=== PATIENT | female | born 2000 ===

== ENCOUNTER 2023-02-18 19:05 | Outpatient (REF) | payer OTHER, SELFPAY ==
[2023-02-23 15:08] LABS: Age Gdln ACOG Testing Note (.); IGP, rfx Aptima HPV ASCU Note (.)
== END 2023-02-18 19:06 | disposition home or self-care (01) ==
LOC: LAB 19:05
PROVIDERS: Visit Provider Obstetrics & Gynecology
DX: Z01.419 Encounter for gynecological examination (general) (routine) without abnormal findings (principal)
CPT/HCPCS: G0145

== ENCOUNTER 2024-03-16 19:12 | Outpatient (REF) | payer OTHER, SELFPAY ==
--- OUTSIDE RECORDS SUMMARY | 2024-03-16 19:21 | XMS_ITS | CCD ---
Author Organization [facility] Care Team Providers Care Contracting Support Specialist Name Role Phone Edgar Kelsey Unavailable Unavailable Edgar Kelsey Unavailable Unavailable UNKNOWN, PCP Unavailable Unavailable DiMarinoMarianela Unavailable Unavailable DiMarino Marianela CARTRE Unavailable Unavailable Christian Coelho Unavailable Unavailable Low PhD, Edgar GARRIDO Unavailable Unavailable Karen Downey Unavailable Unavailable Daxa Mcdonald Primary Care Physician Unavailab Page Crews Unavailable MD Christian Coelho Primary Care Provider DO Spenser Calabrese Attending Provider Torres Dennis Attending Unavailable Geno Eugene Attending Unavailable Taniya Krueger Unavailable MD Christian Coelho Primary Care Provider DO Spenser Calabrese Attending Provider FLORENTINO MCNEILL Attending Unavailable MD Christian Coelho Primary Care Provider MD Maribell James Attending Provider Bharati DO Spenser TRACY Attending Provider JERRY Barnes Attending Provider Christian Coelho Primary Care Unavailable Spenser Rodriguez Admitting Unavailable Spenser Rodriguez Attending Unavailable Page Barnes Admitting Unavailable Page Barnes Attending Unavailable Christian Coelho Primary Care Unavailable Maribell James Admitting Unavailable Maribell James Attending Unavailable Allergies Allergy Classification Reported Allergen(s) Allergy Type Date of Onset Reaction(s) Facility (1 source) Unable to obtain; Translations: [Unable to obtain] Propensity to adverse reactions (disorder) [facility] Medications Current Medications Medication Drug Class(es) Dates Sig (Normalized) Sig (Original) amoxicillin 500 mg oral capsule (2 sources) Penicillin-class Antibacterial Start: 02-14-2022 take 1 capsule by mouth every twelve hours Amoxicillin 500 MG 1 capsule Orally Twice a day for 10 days Feb, Active Start: 08-12-2021 End: 08-22-2021 take 1 tablet by mouth twice daily amoxicillin 875 mg Tab 875 mg = 1 tab(s), Oral, BID, X 10 day(s), # 20 tab(s), Refills(s) 0, Pharmacy: [facility], 171, cm, 08/12/21 12:26:00 EDT, Height/Length Dosing, 62.8, kg, 08/12/21 12:26:00 EDT, Weight Dosing Start Date: 08/12/21 Stop Date: 08/22/21 Status: Ordered Estarylla 0.25 mg-35 mcg oral tablet (1 source) Start: 08-12-2021 Estarylla 0.25 mg-35 mcg oral tablet Refill(s) 0 Start Date: 08/12/21 Status: Ordered Norethindrone-E.Estr adiol-Iron (3 sources) Estrogen Start: 10-19-2023 take 1 tablet by mouth once daily Norethindrone-E.E stradiol-Iron (Lo Loestrin Fe) 1 mg-10 mcg (24)/10 mcg (2) tablet Active TAB PO Daily October 19, 2023 12:00am {21 (ethinyl estradiol 0.035 MG / norgestimate 0.25 MG Oral Tablet) / 7 (inert ingredients 1 MG Oral Tablet) } Pack [Estarylla Day] (2 sources) Progestin, Estrogen take 1 tablet by mouth every twenty-four hours Estarylla 0.25-35 MG-MCG 1 tablet Orally Once a day for 28 days Active take 1 tablet by joshua th every twenty-four hours Estarylla 0.25-35 MG-MCG 1 tablet Orally Once a day Active nitrofurantoin, macrocrystals 25 mg / nitrofurantoin, monohydrate 75 mg oral capsule (2 sources) Nitrofuran Antibacterial Start: 01-19-2024 take 1 capsule by mouth every twelve hours at mealtime Nitrofurantoin Monohyd/M-Cryst (Macrobid) 100 mg capsule Active 100 MG PO Q12H 14 7 January 19, 2024 12:00am must administer with a meal/food phenazopyridine hydrochloride 200 mg oral tablet (2 sources) Start: 01-19-2024 take 1 tablet by mouth three times daily Phenazopyridine (Pyridium) 200 mg tablet Active 200 MG PO Three times daily 6 January 19, 2024 12:00am Completed/Discontinued Medications Medication Drug Class(es) Dates Sig (Normalized) Sig (Original) [id number] 200 actuat albuterol 0.09 mg/actuat metered dose inhaler (1 source) beta2-Adrenergic Agonist Start: 10-15-2015 take 2-4 puff(s) by inhalation every four to six hours as needed for cough ProAir HFA 108 (90 Base) MCG/ACT Inhalation Aerosol Solution Inhale 2-4 puffs every 4-6 hours as needed for cough, wheezing or shortness of breath and 5-20 minutes prior to exercise Quantity: 3 Refills: 2 Marianela Reyes DO Start : 15-Oct-2015 Active 8.5 GM Inhaler 60 actuat budesonide 0.16 mg/actuat / formoterol fumarate 0.0045 mg/actuat metered dose inhaler (1 source) Corticosteroid, beta2-Adrenergic Agonist Start: 08-01-2016 take 2 puff(s) by mouth twice daily Symbicort 160-4.5 MCG/ACT Inhalation Aerosol INHALE 2 PUFFS TWICE DAILY. RINSE MOUTH AFTER USE. Quantity: 1 Refills: 6 Marianela Reyes DO Start : 01-Aug-2016 Active 10.2 GM Inhaler clindamycin 0.01 mg/mg topical gel (1 source) Lincosamide Antibacterial Start: 04-09-2016 Clindamycin Phosphate 1 % External Gel Quantity: 30 Refills: 0 Start : 09-Apr-2016 Active minocycline 100 mg oral capsule (1 source) Tetracycline-class Drug Start: 04-09-2016 Minocycline HCl - 100 MG Oral Capsule Quantity: 30 Refills: 0 Start : 09-Apr-2016 Active sulfacetamide sodium 100 mg/ml topical lotion (1 source) Sulfonamide Antibacterial Start: 04-09-2016 Sulfacetamide Sodium (Acne) 10 % External Lotion Quantity: 60 Refills: 0 Start : 09-Apr-2016 Active Problems Active Problems Problem Classification Problem Date Documented Date Episodic/Chronic Anxiety disorders (1 source) Performance anxiety; Translations: [Other anxiety states] Chronic Asthma (2 sources) Exercise-induced asthma; Translations: [Exercise induced bronchospasm] Chronic Contraceptive and procreative management (6 sources) Patient encounter status; Translations: [Encounter for other general counseling and advice on contraception] Episodic Genitourinary symptoms and ill-defined conditions (1 source) Dysuria; Translations: [Dysuria] Onset: 01-19-2024 Episodic Inflammation; infection of eye (except that caused by tuberculosis or sexually transmitteddisease) (1 source) Viral conjunctivitis; Translations: [Viral conjunctivitis, unspecified] Onset: 08-12-2021 Episodic Miscellaneous mental health disorders (1 source) Psychosomatic factor in physical condition; Translations: [Psychic factors associated with diseases classified elsewhere] Chronic Other and delivery including normal (1 source) Delivery normal; Translations: [Normal delivery] Episodic Other upper respiratory disease (1 source) Allergic rhinitis; Translations: [Allergic rhinitis, cause unspecified] Chronic Other upper respiratory disease (2 sources) Vocal cord dysfunction; Translations: [Other diseases of vocal cords] Episodic Other upper respiratory infections (3 sources) Acute maxillary sinusitis, unspecified; Translations: [Acute pharyngitis, unspecified] Onset: 08-12-2021 Episodic Unclassified (1 source) 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) Onset: 11-13-2016 Unclassified (1 source) 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-10) Onset: 11-13-2016 Unclassified (1 source) Other diseases of vocal cords / J38.3(ICD-10) Onset: 11-13-2016 Urinary tract infections (2 sources) Acute cystitis with hematuria; Translations: [Acute cystitis] 01-19-2024 Episodic Past or Other Problems Problem Classification Problem Date Documented Date Episodic/Chronic Administrative/social admission (1 source) Encounter for nonprocreative genetic counseling; Translations: [Encounter for nonprocreative genetic counseling] Onset: 08-19-2023 Episodic NEGATED: Highlighted row has not occurred!Residual codes; unclassified (1 source) Disease Episodic Results Test Name Value Interpretation Reference Range Facility Urine Cultureon 01-19-2024 Bacteria identified Cx Nom (U) ORGANISM: Escherichia coli (MDRO) (O:ESCCOLMDRO) [place] Count >100,000 Aerobic SAVANNAH Charge (NMIC56) ---- SUSCEPTIBILITY --- ORGANISM: O:ESCCOLMDRO ANTIBIOTIC INTERPRETATION SAVANNAH Amikacin S <16 Amoxacillin/K Clavulanate S <8 Ampicillin R >16 Ampicillin/Sulbactam I 1616/8 Aztreonam S <4 Cefazolin S 4 Cefepime S <2 Ceftazidime S <1 Ceftazidime/Avibactam S <4 Ceftolozane/Tazobacta m S <2 Ceftriaxone S <1 Cefuroxime S <4 Ciprofloxacin S <0.25 Ertapenem S <0.5 Gentamicin R >8 Levofloxacin S <0.5 Meropenem S <1 Meropenem/Vaborbactam S <2 Nitrofurantoin S <32 Piperacillin/Tazobact am S <8 Tetracycline R >8 Tigecycline S <2 Tobramycin S 4 Trimethoprim/Sulfamet hoxazole R >2 S = SUSCEPTIBLE I = INTERMEDIATE R = RESISTANT BLANK = DATA NOT AVAILABLE, OR DRUG NOT ADVISABLE OR TESTED R* = RESISTANCE DUE TO EXTENDED SPECTRUM BETA-LACTAMASES ESBL = EXTENDED SPECTRUM BETA-LACTAMASE TFG = THYMIDINE-DEPENDENT STRAIN CHIKIS = BETA-LACTAMASE POSITIVE IB = INDUCIBLE BETA-LACTAMASE. APPEARS IN PLACE OF 'S' WITH SPECIES KNOWN TO POSSESS INDUCIBLE BETA-LACTAMASES. POTENTIALLY THEY MAY BECOME RESISTANT TO ALL B-LACTAM DRUGS. PERFORMED BY: [place] [address] PATHOLOGIST [employer] M[employer] SETTER HARRIET GUADALUPE M.D. Normal [facility] Comment on above: Performed By: #### C UU #### [place] [address] [place] Automated basophil %Ordered By: Taniya Krueger on 09-24-2023 Basophils/100 WBC (Bld) 0.7 % Normal . [facility] Comment on above: Performed By: #### P ILLAR TSH, PILLAR CBC, PILLAR BMP, PILLAR LIPID #### [address] Automated basophil countOrde red By: Taniya Krueger on 09-24-2023 Basophils (Bld) [#/Vol] 0.0 10*3/uL Normal 0.0-0.2 [facility] Comment on above: Result Comment: PERF ORMED BY: [place] [address] PATHOLOGIST [employer] MACHINE SETTER HARRIET GUADALUPE M.D. Performed By: #### P ILLAR TSH, PILLAR CBC, PILLAR BMP, PILLAR LIPID #### [address] Automated blood monocyte cou ntOrdered By: Taniya Krueger on 09-24-2023 Monocytes (Bld) [#/Vol] 0.2 10*3/uL Normal 0.0-0.8 [facility] Comment on above: Performed By: #### P ILLAR TSH, PILLAR CBC, PILLAR BMP, PILLAR LIPID #### [address] Automated eosinophil %Ordere d By: Taniya Krueger on 09-24-2023 Eosinophils/100 WBC (Bld) 1.9 % Normal . [facility] Comment on above: Performed By: #### P ILLAR TSH, PILLAR CBC, PILLAR BMP, PILLAR LIPID #### [address] Automated eosinophil countOr dered By: Taniya Krueger on 09-24-2023 Eosinophils (Bld) [#/Vol] 0.1 10*3/uL Normal 0.0-0.45 [facility] Comment on above: Performed By: #### P ILLAR TSH, PILLAR CBC, PILLAR BMP, PILLAR LIPID #### [address] Automated monocyte %Ordered By: Taniya Krueger on 09-24-2023 Monocytes/100 WBC (Bld) 6.8 % Normal . [facility] Comment on above: Performed By: #### P ILLAR TSH, PILLAR CBC, PILLAR BMP, PILLAR LIPID #### [facility] [address] [place] [address] [place] Automated neutrophil %Ordere d By: Taniya Krueger on 09-24-2023 Neutrophils/100 WBC (Bld) 38.7 % Normal . [facility] Comment on above: Performed By: #### P ILLAR TSH, PILLAR CBC, PILLAR BMP, PILLAR LIPID #### [address] Calcium [Mass/volume] in Ser um or PlasmaOrdered By: Taniya Krueger on 09-24-2023 Calcium [Mass/Vol] 9.9 mg/dL Normal 8.6-10.3 [facility] Comment on above: Performed By: #### P ILLAR TSH, PILLAR CBC, PILLAR BMP, PILLAR LIPID #### [address] Carbon dioxide, total [Moles /volume] in Serum or PlasmaOrdered By: Taniya Krueger on 09-24-2023 CO2 [Moles/Vol] 26.3 mmol/L Normal 21.0-31.0 [facility] Comment on above: Performed By: #### P ILLAR TSH, PILLAR CBC, PILLAR BMP, PILLAR LIPID #### [facility] [address] [place] [address] [place] Chloride [Moles/volume] in S susie or PlasmaOrdered By: Taniya Krueger on 09-24-2023 Chloride [Moles/Vol] 105 mmol/L Normal 98-107 [facility] Comment on above: Performed By: #### P ILLAR TSH, PILLAR CBC, PILLAR BMP, PILLAR LIPID #### [place] [address] [place] Cholesterol [Mass/volume] in Serum or PlasmaOrdered By: Taniya Krueger on 09-24-2023 Cholesterol [Mass/Vol] 191 mg/dL Normal 140-200 [facility] Comment on above: Chol less than 200 m g/dl low riskChol 201-239 mg/dl borderline riskChol 240 mg/dl and greater high risk Result Comment: Chol less than 200 mg/dl low risk Chol 201-239 mg/dl borderline risk Chol 240 mg/dl and greater high risk Performed By: #### P ILLAR TSH, PILLAR CBC, PILLAR BMP, PILLAR LIPID #### [facility] [address] Cholesterol in LDL Calc [Mas s/Vol]Ordered By: Taniya Krueger on 09-24-2023 Cholesterol in LDL [Mass/Vol] 115 mg/dL High 0-100 [facility] Comment on above: LDL ATP III CLASSIFI CATIONLDL less than 100 mg/dL OptimalLDL 100-129 mg/dL Near or above optimalLDL 130-159 mg/dL Borderline highLDL 160-189 mg/dL HighLDL greater than 189 mg/dL Very high Cholesterol in VLDL Calc [Ma ss/Vol]Ordered By: Taniya Krueger on 09-24-2023 Cholesterol in VLDL [Mass/Vol] 13 mg/dL [facility] Creatinine [Mass/volume] in Serum or PlasmaOrdered By: Taniya Krueger on 09-24-2023 Creatinine [Mass/Vol] 0.74 mg/dL Normal 0.60-1.20 [facility] Comment on above: Performed By: #### P ILLAR TSH, PILLAR CBC, PILLAR BMP, PILLAR LIPID #### [facility] [address] [place] [address] Employee Basic Metabolic Thomas nadia 09-24-2023 GFR/1.73 sq M.predicted MDRD (S/P/Bld) [Vol rate/Area] mL/min/{1.73_m2} Normal [facility] Comment on above: Performed By: #### P ILLAR TSH, PILLAR CBC, PILLAR BMP, PILLAR LIPID #### [facility] [address] Employee Complete Blood Coun ton 09-24-2023 Mean Corpuscular HGB Conc 35.0 g/dL Normal 32.0-35.0 [facility] Comment on above: Performed By: #### P ILLAR TSH, PILLAR CBC, PILLAR BMP, PILLAR LIPID #### [facility] [address] NRBC% 0.2 /100{WBC} Normal 0-0.5 [facility] Comment on above: Performed By: #### P ILLAR TSH, PILLAR CBC, PILLAR BMP, PILLAR LIPID #### [facility] [address] Employee Lipid Profileon LDL Cholesterol,Calculated 115 mg/dL High 0-100 [facility] Comment on above: Result Comment: LDL ATP III CLASSIFICATION LDL less than 100 mg/dL Optimal LDL 100-129 mg/dL Near or above optimal LDL 130-159 mg/dL Borderline high LDL 160-189 mg/dL High LDL greater than 189 mg/dL Very high Performed By: #### P ILLAR TSH, PILLAR CBC, PILLAR BMP, PILLAR LIPID #### [address] Triglyceride w/Reflex 66 mg/dL Normal 0-149 [facility] Comment on above: Result Comment: TRIG ATP III CLASSIFICATION TRIG less than 150 mg/dL Normal TRIG 150-199 mg/dL Borderline high TRIG 200-500 mg/dL High TRIG greater than 500 mg/dL Very high Standard traceable to the Center for Disease Conrtrol and Prevention (CDC) test method. Performed By: #### P ILLAR TSH, PILLAR CBC, PILLAR BMP, PILLAR LIPID #### [address] VLDL CHOLESTEROL 13 mg/dL Normal [facility] Comment on above: Performed By: #### P ILLAR TSH, PILLAR CBC, PILLAR BMP, PILLAR LIPID #### [address] Employee Thyroid Stim Hormon omer 09-24-2023 Employee Thyroid Stim Hormone 2.17 u[iU]/mL Normal 0.45-5.33 [facility] Comment on above: Result Comment: PERF ORMED BY: [place] [address] PATHOLOGIST [employer] MACHINE SETTER JIANLAN SUN M.D. Performed By: #### P ILLAR TSH, PILLAR CBC, PILLAR BMP, PILLAR LIPID #### [facility] [address] [place] [address] Erythrocyte distribution wid th [Ratio] by Automated countOrdered By: Taniya Krueger on 09-24-2023 Erythrocyte distribution width (RBC) [Ratio] 12.1 % Normal 11.9-15.3 [facility] Comment on above: Performed By: #### P ILLAR TSH, PILLAR CBC, PILLAR BMP, PILLAR LIPID #### [address] Erythrocytes [#/volume] in B lood by Automated countOrdered By: Taniya Krueger on 09-24-2023 RBC (Bld) [#/Vol] 4.23 10*6/uL Normal 3.60-5.00 [facility] Comment on above: Performed By: #### P ILLAR TSH, PILLAR CBC, PILLAR BMP, PILLAR LIPID #### [address] Glucose [Mass/volume] in Ser um or PlasmaOrdered By: Taniya Krueger on 09-24-2023 Glucose [Mass/Vol] 94 mg/dL Normal 70-100 [facility] Comment on above: Performed By: #### P ILLAR TSH, PILLAR CBC, PILLAR BMP, PILLAR LIPID #### [address] Hematocrit [Volume Fraction] of Blood by Automated countOrdered By: Taniya Krueger on 09-24-2023 Hematocrit (Bld) [Volume fraction] 40.5 % Normal 34.0-46.4 [facility] Comment on above: Performed By: #### P ILLAR TSH, PILLAR CBC, PILLAR BMP, PILLAR LIPID #### [facility] [address] [place] [address] Hemoglobin [Mass/volume] in BloodOrdered By: Taniya Krueger on 09-24-2023 Hemoglobin (Bld) [Mass/Vol] 14.2 g/dL Normal 11.8-15.4 [facility] Comment on above: Performed By: #### P ILLAR TSH, PILLAR CBC, PILLAR BMP, PILLAR LIPID #### [facility] [address] Leukocytes [#/volume] correc henry for nucleated erythrocytes in Blood by Automated counOrdered By: Taniya Krueger on 09-24-2023 WBC corrected for nucl RBC Auto (Bld) [#/Vol] 3.2 10*3/uL Low 3.8-11.6 [facility] Leukocytes [#/volume] in Blo od by Automated countOrdered By: Taniya Krueger on 09-24-2023 WBC (Bld) [#/Vol] 3.2 10*3/uL Low 3.8-11.6 [facility] Comment on above: Performed By: #### P ILLAR TSH, PILLAR CBC, PILLAR BMP, PILLAR LIPID #### [facility] [address] [place] [address] [place] Lymphocytes [#/volume] in Bl ood by Automated countOrdered By: Taniya Krueger on 09-24-2023 Lymphocytes (Bld) [#/Vol] 1.7 10*3/uL Normal 1.00-4.8 [facility] Comment on above: Performed By: #### P ILLAR TSH, PILLAR CBC, PILLAR BMP, PILLAR LIPID #### [facility] [address] [place] [address] [place] Lymphocytes/100 leukocytes i n Blood by Automated countOrdered By: Taniya Krueger on 09-24-2023 Lymphocytes/100 WBC (Bld) 51.9 % Normal . [facility] Comment on above: Performed By: #### P ILLAR TSH, PILLAR CBC, PILLAR BMP, PILLAR LIPID #### [facility] [address] [place] [address] [place] MCH [Entitic mass] by Automa henry countOrdered By: Taniya Krueger on 09-24-2023 MCH (RBC) [Entitic mass] 33.5 pg Normal 24.7-34.3 [facility] Comment on above: Performed By: #### P ILLAR TSH, PILLAR CBC, PILLAR BMP, PILLAR LIPID #### [facility] [address] MCHC Auto (RBC) [Mass/Vol]Or dered By: Taniya Krueger on 09-24-2023 MCHC (RBC) [Mass/Vol] 35.0 g/dL 32.0-35.0 [facility] MCV [Entitic volume] by Auto mated countOrdered By: Taniya Krueger on 09-24-2023 MCV (RBC) [Entitic vol] 95.9 fL Normal 80-100 [facility] Comment on above: Performed By: #### P ILLAR TSH, PILLAR CBC, PILLAR BMP, PILLAR LIPID #### [facility] [address] [place] [address] Neutrophils [#/volume] in Bl ood by Automated countOrdered By: Taniya Krueger on 09-24-2023 Neutrophils (Bld) [#/Vol] 1.2 10*3/uL Low 1.8-7.7 [facility] Comment on above: Performed By: #### P ILLAR TSH, PILLAR CBC, PILLAR BMP, PILLAR LIPID #### [facility] [address] [place] [address] No Panel InformationOrdered By: Taniya Krueger on 09-24-2023 Estimated GFR (CKD-EPI) > 60.0 mL/Min [facility] Creatinine Clearance (Chem N/A [facility] Nucleated erythrocytes [Pres ence] in Blood by Automated countOrdered By: Taniya Krueger on 09-24-2023 Nucleated RBC Auto Ql (Bld) 0.2 /100{WBC} 0-0.5 [facility] Platelet mean volume [Entiti c volume] in Blood by Automated countOrdered By: Taniya Krueger on 09-24-2023 Platelet mean volume (Bld) [Entitic vol] 7.5 fL Normal 6.3-10.7 [facility] Comment on above: Performed By: #### P ILLAR TSH, PILLAR CBC, PILLAR BMP, PILLAR LIPID #### [facility] [address] [place] [address] Platelets [#/volume] in Bloo d by Automated countOrdered By: Taniya Krueger on 09-24-2023 Platelets (Bld) [#/Vol] 251 10*3/uL Normal 150-450 [facility] Comment on above: Performed By: #### P ILLAR TSH, PILLAR CBC, PILLAR BMP, PILLAR LIPID #### [facility] [address] Potassium [Moles/volume] in Serum or PlasmaOrdered By: Taniya Krueger on 09-24-2023 Potassium [Moles/Vol] 4.5 mmol/L Normal 3.5-5.1 [facility] Comment on above: Performed By: #### P ILLAR TSH, PILLAR CBC, PILLAR BMP, PILLAR LIPID #### [facility] [address] [place] [address] Serum or plasma anion gap de terminationOrdered By: Taniya Krueger on 09-24-2023 Anion gap [Moles/Vol] 11.2 mmol/L Normal 6.0-15.0 [facility] Comment on above: Performed By: #### P ILLAR TSH, PILLAR CBC, PILLAR BMP, PILLAR LIPID #### [facility] [address] [place] [address] Serum or plasma high density lipoprotein (HDL) cholesterol measurementOrdered By: Taniya Krueger on 09-24-2023 Cholesterol in HDL [Mass/Vol] 63 mg/dL Normal 23-92 [facility] Comment on above: HDL CHOL ATP-III CLA SSIFICATION Cardiovascular RiskHDL > or equal to 60 mg/dL LOWHDL < 40 mg/dL HIGH Result Comment: HDL CHOL ATP-III CLASSIFICATION Cardiovascular Risk HDL > or equal to 60 mg/dL LOW HDL < 40 mg/dL HIGH Performed By: #### P ILLAR TSH, PILLAR CBC, PILLAR BMP, PILLAR LIPID #### [facility] [address] [place] [address] Serum or plasma total choles terol/high density lipoprotein (HDL) cholesterol mass ratOrdered By: Taniya Krueger on 09-24-2023 Cholesterol.total/Sindy sterol in HDL [Mass ratio] 3.0 {ratio} Normal <5.0 [facility] Comment on above: Performed By: #### P ILLAR TSH, PILLAR CBC, PILLAR BMP, PILLAR LIPID #### [facility] [address] Sodium [Moles/volume] in Ser um or PlasmaOrdered By: Taniya Krueger on 09-24-2023 Sodium [Moles/Vol] 138 mmol/L Normal 136-145 [facility] Comment on above: Performed By: #### P ILLAR TSH, PILLAR CBC, PILLAR BMP, PILLAR LIPID #### [facility] [address] Thyrotropin [Units/volume] i n Serum or PlasmaOrdered By: Taniya Krueger on 09-24-2023 TSH Qn 2.17 m[IU]/L 0.45-5.33 [facility] Triglyceride [Mass/volume] i n Serum or PlasmaOrdered By: Taniya Krueger on 09-24-2023 Triglyceride [Mass/Vol] 66 mg/dL 0-149 [facility] Comment on above: TRIG ATP III CLASSIF ICATIONTRIG less than 150 mg/dL NormalTRIG 150-199 mg/dL Borderline highTRIG 200-500 mg/dL High TRIG greater than 500 mg/dL Very highStandard traceable to the Center for Disease Conrtrol and Prevention (CDC) test method. Urea nitrogen [Mass/volume] in Serum or PlasmaOrdered By: Taniya Krueger on 09-24-2023 Urea nitrogen [Mass/Vol] 11 mg/dL Normal 7-25 [facility] Comment on above: Performed By: #### P ILLAR TSH, PILLAR CBC, PILLAR BMP, PILLAR LIPID #### [facility] [address] [place] [address] [place] In office Testingon 05-28-19 23 In office Testing [id number] 1.00CD:[address] [facility] Albumin [Mass/volume] in Ser um or PlasmaOrdered By: Spenser Calabrese on 05-27-2022 Albumin [Mass/Vol] 4.7 g/dL 3.2-5.5 [facility] Aspartate aminotransferase [ Enzymatic activity/volume] in Serum or PlasmaOrdered By: Spenser Calabrese on 05-27-2022 AST [Catalytic activity/Vol] 19 U/L 10-42 [facility] Cholesterol [Mass/volume] in Serum or PlasmaOrdered By: Spenser Calabrese on 05-27-2022 Cholesterol [Mass/Vol] 180 mg/dL 140-200 [facility] Comment on above: Chol less than 200 m g/dl low riskChol 201-239 mg/dl borderline riskChol 240 mg/dl and greater high risk Cholesterol in LDL Calc [Mas s/Vol]Ordered By: Spenser Calabrese on 05-27-2022 Cholesterol in LDL [Mass/Vol] 109 mg/dL 0-100 [facility] Comment on above: LDL ATP III CLASSIFI CATIONLDL less than 100 mg/dL OptimalLDL 100-129 mg/dL Near or above optimalLDL 130-159 mg/dL Borderline highLDL 160-189 mg/dL HighLDL greater than 189 mg/dL Very high Cholesterol in VLDL Calc [Ma ss/Vol]Ordered By: Spenser Calabrese on 05-27-2022 Cholesterol in VLDL [Mass/Vol] 10 mg/dL [facility] Creatinine and Glomerular fi ltration rate.predicted panel (S/P/Bld)Ordered By: Spenser Calabrese on 05-27-2022 Creatinine [Mass/Vol] 0.66 mg/dL 0.44-1.03 [facility] Estimated glomerular filtrat ion rate (GFR) non- AmericanOrdered By: Spenser Calabrese on 05-27-2022 GFR/1.73 sq M.predicted among non-blacks MDRD (S/P/Bld) [Vol rate/Area] > 60 mL/Min [facility] Globulin Calc (S) [Mass/Vol] Ordered By: Spenser Calabrese on 05-27-2022 Globulin (S) [Mass/Vol] 2.5 g/dL [facility] - Chemistry and C hemistry - challengeOrdered By: Spenser Calabrese on 05-27-2022 Glucose [Mass/Vol] 88 mg/dL 70-100 [facility] No Panel InformationOrdered By: Spenser Calabrese on 05-27-2022 Estimated GFR () > 60 mL/Min [facility] Comment on above: GFR estimated refere nce range: According to KDOQI guidelines, <60 ml/min/1.73m2 is sufficient to diagnose a patient with chronic kidney disease. Pharmacy Creatinine Clearance (Chem N/A [facility] Triglycerides Reflex 51 mg/dL 35-149 [facility] Comment on above: TRIG ATP III CLASSIF ICATIONTRIG less than 150 mg/dL NormalTRIG 150-199 mg/dL Borderline highTRIG 200-500 mg/dL High TRIG greater than 500 mg/dL Very highStandard traceable to the Center for Disease Conrtrol and Prevention (CDC) test method. Protein [Mass/volume] in Ser um or PlasmaOrdered By: Spenser Calabrese on 05-27-2022 Protein [Mass/Vol] 7.2 g/dL 6.1-7.9 [facility] Serum or plasma alanine ackerman otransferase measurement without P-5'-P (enzymatic activiOrdered By: Spenser Calabrese on 05-27-2022 ALT No additional P-5'-P [Catalytic activity/Vol] 17 U/L 10-60 [facility] Serum or plasma albumin/glob ulin mass ratioOrdered By: Spenser Calabrese on 05-27-2022 Albumin/Globulin [Mass ratio] 1.9 {ratio} [facility] Serum or plasma alkaline jeanie sphatase measurement (enzymatic activity/volume)Ordered By: Spenser Calabrese on 05-27-2022 ALP [Catalytic activity/Vol] 27 U/L 32-92 [facility] Serum or plasma anion gap de terminationOrdered By: Spenser Calabrese on 05-27-2022 Anion gap [Moles/Vol] 12.9 mmol/L 6.0-15.0 [facility] Serum or plasma calcium chapis urement (mass/volume)Ordered By: Spenser Calabrese on 05-27-2022 Calcium [Mass/Vol] 9.5 mg/dL 8.2-10.2 [facility] Serum or plasma chloride venancio surement (moles/volume)Ordered By: Spenser Calabrese on 05-27-2022 Chloride [Moles/Vol] 102 mmol/L 95-114 [facility] Serum or plasma high density lipoprotein (HDL) cholesterol measurementOrdered By: Spenser Calabrese on 05-27-2022 Cholesterol in HDL [Mass/Vol] 61 mg/dL 35-85 [facility] Comment on above: HDL CHOL ATP-III CLA SSIFICATION Cardiovascular RiskHDL > or equal to 60 mg/dL LOWHDL < 40 mg/dL HIGH Serum or plasma potassium me asurement (moles/volume)Ordered By: Spenser Calabrese on 05-27-2022 Potassium [Moles/Vol] 3.7 mmol/L 3.5-5.1 [facility] Serum or plasma sodium measu rement (moles/volume)Ordered By: Spenser Calabrese on 05-27-2022 Sodium [Moles/Vol] 134 mmol/L 136-146 [facility] Serum or plasma total biliru bin measurement (mass/volume)Ordered By: Spenser Calabrese on 05-27-2022 Bilirubin [Mass/Vol] 0.8 mg/dL 0.3-1.2 [facility] Serum or plasma total carbon dioxide measurement (moles/volume)Ordered By: Spenser Calabrese on 05-27-2022 CO2 [Moles/Vol] 22.8 mmol/L 22.0-30.0 [facility] Serum or plasma total choles terol/high density lipoprotein (HDL) cholesterol mass ratOrdered By: Spenser Calabrese on 05-27-2022 Cholesterol.total/Sindy sterol in HDL [Mass ratio] 3.0 {ratio} <5.0 [facility] Serum or plasma urea nitroge n measurement (mass/volume)Ordered By: Spenser Calabrese on 05-27-2022 Urea nitrogen [Mass/Vol] 10 mg/dL 9-23 [facility] Quick Strepon 02-14-2022 S. pyogenes Org specific cx Ql (Throat) Positive Nolio Other [facility] Other Ambulatory Visit Summaryon 0 08-12-2021 Ambulatory Visit Summary YOSEF SMITH :2000 Visit Date:08/12/2021 Ambulatory Visit Instructions Your Diagnosis Acute maxillary sinusitis, unspecified Viral conjunctivitis, both eyes Your Care Team Attending Physician - Jabier MENG, Geno Kendrick Primary Care Physician - Harry CORREA PhD, Daxa Baxter This Is Your Medications List amoxicillin (amoxicillin 875 mg Tab) Contact prescribing physician if questions or concerns ethinyl estradiol-norgestimat e (Estarylla 0.25 mg-35 mcg oral tablet) Discharge Vitals Temperature (Oral) 36.9 ?C Heart Rate (Peripheral) 100 Blood Pressure 118/70 Height 171 cm Height 171.0 cm Weight 62.8 kg Weight 62.8 kg BMI 21.48 What to do next You Need to Schedule the Following Appointments Follow Up with Harry CORREA PhD, Daxa Baxter, [facility] When: Where: [address] [place] [phone] Medications What How Much When Why Instructions New amoxicillin (amoxicillin 875 mg Tab) 1 Tablets By Mouth 2 times a day Acute maxillary sinusitis, unspecified Duration: [address] [facility] Unchanged ethinyl estradiol-norgestimat e (Estarylla 0.25 mg-35 mcg oral tablet) Contact prescribing physician if questions or concerns Pharmacy Information [facility]: [address] [place], [place] [id number] [phone] Allergies No Known Allergies Education Materials Sinusitis, Adult Sinusitis is inflammation of your sinuses. Sinuses are hollow spaces in the bones around your face. Your sinuses are located: ? Around your eyes. ? In the middle of your forehead. ? Behind your nose. ? In your cheekbones. Mucus normally drains out of your sinuses. When your nasal tissues become inflamed or swollen, mucus can become trapped or blocked. This allows bacteria, viruses, and fungi to grow, which leads to infection. Most infections of the sinuses are caused by a virus. Sinusitis can develop quickly. It can last for up to 4 weeks (acute) or for more than 12 weeks (chronic). Sinusitis often develops after a cold. What are the causes? This condition is caused by anything that creates swelling in the sinuses or stops mucus from draining. This includes: ? Allergies. ? Asthma. ? Infection from bacteria or viruses. ? Deformities or blockages in your nose or sinuses. ? Abnormal growths in the nose (nasal polyps). ? Pollutants, such as chemicals or irritants in the air. ? Infection from fungi (rare). What increases the risk? You are more likely to develop this condition if you: ? Have a weak body defense system (immune system). ? Do a lot of swimming or diving. ? Overuse nasal sprays. ? Smoke. What are the signs or symptoms? The main symptoms of this condition are pain and a feeling of pressure around the affected sinuses. Other symptoms include: ? Stuffy nose or congestion. ? Thick drainage from your nose. ? Swelling and warmth over the affected sinuses. ? Headache. ? Upper toothache. ? A cough that may get worse at night. ? Extra mucus that collects in the throat or the back of the nose (postnasal drip). ? Decreased sense of smell and taste. ? Fatigue. ? A fever. ? Sore throat. ? Bad breath. How is this diagnosed? This condition is diagnosed based on: ? Your symptoms. ? Your medical history. ? A physical exam. ? Tests to find out if your condition is acute or chronic. This may include: ? Checking your nose for nasal polyps. ? Viewing your sinuses using a device that has a light (endoscope). ? Testing for allergies or bacteria. ? Imaging tests, such as an MRI or CT scan. In rare cases, a bone biopsy may be done to rule out more serious types of fungal sinus disease. How is this treated? Treatment for sinusitis depends on the cause and whether your condition is chronic or acute. ? If caused by a virus, your symptoms should go away on their own within 10 days. You may be given medicines to relieve symptoms. They include: ? Medicines that shrink swollen nasal passages (topical intranasal decongestants). ? Medicines that treat allergies (antihistamines). ? A spray that eases inflammation of the nostrils (topical intranasal corticosteroids). ? Rinses that help get rid of thick mucus in your nose (nasal saline washes). ? If caused by bacteria, your health care provider may recommend waiting to see if your symptoms improve. Most bacterial infections will get better without antibiotic medicine. You may be given antibiotics if you have: ? A severe infection. ? A weak immune system. ? If caused by narrow nasal passages or nasal polyps, you may need to have surgery. Follow these instructions at home: Medicines ? Take, use, or apply [id number]-[id number] and prescription medicines only as told by your health care provider. These may include nasal sprays. ? (more content not included)... Normal [facility] Family Medicine Office/Clini c Noteon 08-12-2021 Family Medicine Office/Clinic Note Chief Complaint [employer] [place] eye/Sinus HPI Staff Yosef is a 21 year old female presenting for possible pink eye and sinus symptoms Symptoms started- LAst week Headache- yes Body aches- no Earache- no Runny/stuffy nose- runny Problem with Smell- no Problem with Taste- no Sore throat- no Cough- yes Scratchy tickly throat- no Chest symptoms- NO GAN- no Orthopnea- no Lung Hx asthma, bronchitis, chest colds- no Fever/chills- no GI symptoms- no COVID exposure- no Vaccinated: no Eye-- Onset: Yesterday Characteristics: Goopy Drainage: Slight Laterality: Bilateral History of Present Illness I have reviewed and verified the staff HPI to be accurate for this encounter. Patient presents in office with c/o URI symptoms x 1.5 week. Reports HAYNES, rhinorrhea, nasal congestion, cough. Also c/o pink eye symptoms including watery drainage, and redness to both eyes. Denies body aches, fatigue, sore throat, SOB, wheezing, fever, chills and GI symptoms. Denies drainage throughout day and itchy/burning of eyes. No known sick or COVID exposure. Patient not COVID vaccinated at this time. Has not tried anything OTC at this time. Review of Systems PHQ Score Initial Depression Screen Score: 0 Physical Exam Vitals & Measurements T: 36.9 ?C(Oral) HR: 100(Peripheral) BP: 118/70 SpO2: 99% HT: 171 cm HT: 171.0 cm WT: 62.8 kg WT: 62.8 kg BMI: 21.48 General: Well developed, well nourished, in no acute distress Eyes: Mild erythema noted to bilaterally conjunctivae. No drainage at this time. PERRLA. Ears: No deformity or lesion of external ear. Canals and TM appear normal bilaterally. TM?s intact, not inflamed, with normal light reflex. Hearing grossly normal to conversational speech Nose: No deformity, discharge, inflammation, or lesions Mouth: Mucous membranes moist. Normal oropharynx, and posterior pharynx without lesions or exudates. Tongue normal Neck: no adenopathy Lungs: clear to auscultation throughout, no wheezing, no rales. No respiratory distress Cardio: regular rate and rhythm, no murmur Mental Status: Alert and oriented x3. Normal mood and affect Assessment/Plan 1. Acute maxillary sinusitis, unspecified (J01.00: Acute maxillary sinusitis, unspecified) Given duration of symptoms and exam, will cover for sinusitis with Amoxicillin BID x 10 days. Finish entire course. Fluids/rest, PRN Tylenol/ibuprofen for pain and/or fever encouraged. May use Mucinex-DM and Claritin-D for symptomatic tx. Follow up with PCP if not improving over next 5-7 days with ATB or significantly worsening. Patient and/or parent verbalized understanding of treatment plan. Ordered: amoxicillin, 875 mg = 1 tab(s), Oral, BID, X 10 day(s), # 20 tab(s), Refills(s) 0, Pharmacy: [facility], 171, cm, 08/12/21 12:26:00 EDT, Height/Length Dosing, 62.8, kg, 08/12/21 12:26:00 EDT, Weight Dosing 2. Viral conjunctivitis, both eyes (B30.9: Viral conjunctivitis, unspecified) Exam consistent with viral conjunctivitis. Discussed viral nature and typical duration. Advised although viral in nature, is still contagious-avoid touching eyes. May use warm compresses to remove crusting in morning. Discard current pair of contacts and do not replace until completely resolved. May use otc lubricating eyes drops for irritation. Follow up with PCP or eye doctor if not improving over next 3-5 days. Patient/Parent verbalized understanding. Follow-up With When Contact Information Harry CORREA PhD, Daxa Baxter, [address] [address] [phone] Additional Instructions: Patient Education Sinusitis, Adult Problem List/Past Medical History Ongoing No chronic problems Historical No qualifying data Medications amoxicillin 875 mg Tab, 875 mg= 1 tab(s), Oral, BID Estarylla 0.25 mg-35 mcg oral tablet Allergies No Known Allergies Social History Tobacco Never (less than 100 in lifetime) Tobacco Use:. Never Smokeless Tobacco Use:., 08/12/2021 Immunizations Vaccine Date Status Comments influenza virus vaccine, inactivated 01/16/[address] [facility] Comment on above: Result Comment: Elec tronically Signed By: Jabier MENG, Geno Chapin.ayaz\Date and Time Signed: 08/12/21 12:55 EDT Patient Educationon 08-13-19 Patient Education Infectious Disease Sinusitis, Adult Sinusitis is inflammation of your sinuses. Sinuses are hollow spaces in the bones around your face. Your sinuses are located: ? Around your eyes. ? In the middle of your forehead. ? Behind your nose. ? In your cheekbones. Mucus normally drains out of your sinuses. When your nasal tissues become inflamed or swollen, mucus can become trapped or blocked. This allows bacteria, viruses, and fungi to grow, which leads to infection. Most infections of the sinuses are caused by a virus. Sinusitis can develop quickly. It can last for up to 4 weeks (acute) or for more than 12 weeks (chronic). Sinusitis often develops after a cold. What are the causes? This condition is caused by anything that creates swelling in the sinuses or stops mucus from draining. This includes: ? Allergies. ? Asthma. ? Infection from bacteria or viruses. ? Deformities or blockages in your nose or sinuses. ? Abnormal growths in the nose (nasal polyps). ? Pollutants, such as chemicals or irritants in the air. ? Infection from fungi (rare). What increases the risk? You are more likely to develop this condition if you: ? Have a weak body defense system (immune system). ? Do a lot of swimming or diving. ? Overuse nasal sprays. ? Smoke. What are the signs or symptoms? The main symptoms of this condition are pain and a feeling of pressure around the affected sinuses. Other symptoms include: ? Stuffy nose or congestion. ? Thick drainage from your nose. ? Swelling and warmth over the affected sinuses. ? Headache. ? Upper toothache. ? A cough that may get worse at night. ? Extra mucus that collects in the throat or the back of the nose (postnasal drip). ? Decreased sense of smell and taste. ? Fatigue. ? A fever. ? Sore throat. ? Bad breath. How is this diagnosed? This condition is diagnosed based on: ? Your symptoms. ? Your medical history. ? A physical exam. ? Tests to find out if your condition is acute or chronic. This may include: ? Checking your nose for nasal polyps. ? Viewing your sinuses using a device that has a light (endoscope). ? Testing for allergies or bacteria. ? Imaging tests, such as an MRI or CT scan. In rare cases, a bone biopsy may be done to rule out more serious types of fungal sinus disease. How is this treated? Treatment for sinusitis depends on the cause and whether your condition is chronic or acute. ? If caused by a virus, your symptoms should go away on their own within 10 days. You may be given medicines to relieve symptoms. They include: ? Medicines that shrink swollen nasal passages (topical intranasal decongestants). ? Medicines that treat allergies (antihistamines). ? A spray that eases inflammation of the nostrils (topical intranasal corticosteroids). ? Rinses that help get rid of thick mucus in your nose (nasal saline washes). ? If caused by bacteria, your health care provider may recommend waiting to see if your symptoms improve. Most bacterial infections will get better without antibiotic medicine. You may be given antibiotics if you have: ? A severe infection. ? A weak immune system. ? If caused by narrow nasal passages or nasal polyps, you may need to have surgery. Follow these instructions at home: Medicines ? Take, use, or apply ljws-hvj-zmzjfep and prescription medicines only as told by your health care provider. These may include nasal sprays. ? If you were prescribed an antibiotic medicine, take it as told by your health care provider. Do not stop taking the antibiotic even if you start to feel better. Hydrate and humidify ? Drink enough fluid to keep your urine pale yellow. Staying hydrated will help to thin your mucus. ? Use a cool mist humidifier to keep the humidity level in your home above 50%. ? Inhale steam for 10?15 minutes, 3?4 times a day, or as told by your health care provider. You can do this in the bathroom while a hot shower is running. ? Limit your exposure to cool or dry air. Rest ? Rest as much as possible. ? Sleep with your head raised (elevated). ? Make sure you get enough sleep each night. General instructions ? Apply a warm, moist washcloth to your face 3?4 times a day or as told by your health care provider. This will help with discomfort. ? Wash your hands often with soap and water to reduce your exposure to germs. If soap and water are not available, use hand cloth worker. ? Do not smoke. Avoid being around people who are smoking (secondhand smoke). ? Keep all follow-up visits as told by your health care provider. This is important. Contact a health care provider if: ? You have a fever. ? Your symptoms get worse. ? Your symptoms do not improve within 10 days. Get help right away if: ? You have a severe headache. ? You have persistent vomiting. ? You have severe pain or swell (more content not included)... Normal [facility] Vital Signs Date Time Vital Sign Value Performing Clinician Facility 01-19-2024 16:33-0400 Diastolic blood pressure 93 mm[Hg] [facility] 01-19-2024 16:33-0400 Systolic blood pressure 157 mm[Hg] [facility] 01-19-2024 16:29-0400 Body height 170.18 cm [facility] 01-19-2024 16:29-0400 Body mass index (BMI) [Ratio] 23.5 kg/m2 [facility] 01-19-2024 16:29-0400 Body temperature 98.4 [degF] [facility] 01-19-2024 16:29-0400 Body weight 68.03 kg [facility] 01-19-2024 16:29-0400 Heart rate 103 /min [facility] 01-19-2024 16:29-0400 SaO2% (BldA) [Mass fraction] 99 % [facility] 10-19-2023 06:55-0400 Body height 170.18 cm MD Christian Coelho Work Phone: [facility] 10-19-2023 06:55-0400 Body mass index (BMI) [Ratio] 23.1 kg/m2 MD Christian Coelho Work Phone: [facility] 10-19-2023 06:55-0400 Body weight 67.18 kg MD Christian Coelho Work Phone: [facility] 10-19-2023 06:55-0400 Diastolic blood pressure 78 mm[Hg] MD Christian Coelho Work Phone: [facility] 10-19-2023 06:55-0400 Heart rate 102 /min MD Christian Coelho Work Phone: [facility] 10-19-2023 06:55-0400 SaO2% (BldA) [Mass fraction] 99 % MD Christian Coelho Work Phone: [facility] 10-19-2023 06:55-0400 Systolic blood pressure 140 mm[Hg] MD Christian Coelho Work Phone: [facility] 08-19-2023 14:26-0400 Diastolic blood pressure 86 mm[Hg] MD Christian Coelho Work Phone: [facility] 08-19-2023 14:26-0400 SaO2% (BldA) [Mass fraction] 100 % MD Christian Coelho Work Phone: [facility] 08-19-2023 14:26-0400 Systolic blood pressure 143 mm[Hg] MD Christian Coelho Work Phone: [facility] 07-17-2022 08:00-0400 Body height 170.18 cm Taniya Krueger Other [facility] Other 07-17-2022 08:00-0400 Body mass index (BMI) [Ratio] 22.83 kg/m2 Taniya Krueger Other [facility] Other 07-17-2022 08:00-0400 Body weight 66.13 kg Taniya Krueger Other [facility] Other 07-17-2022 08:00-0400 Diastolic blood pressure 82 mm[Hg] Taniya Krueger Other [facility] Other 07-17-2022 08:00-0400 SaO2% (BldA) [Mass fraction] 98 % Taniya Pati Other [facility] Other 07-17-2022 08:00-0400 Systolic blood pressure 128 mm[Hg] Taniya Krueger Other [facility] Other 02-14-2022 17:15-0500 Body height 170.18 cm Page Barnes Other [facility] Other 02-14-2022 17:15-0500 Body mass index (BMI) [Ratio] 21.92 kg/m2 Page Barnes Other [facility] Other 02-14-2022 17:15-0500 Body temperature 98.2 [degF] Page Barnes Other [facility] Other 02-14-2022 17:15-0500 Body weight 63.5 kg Page Barnes Other [facility] Other 02-14-2022 17:15-0500 Diastolic blood pressure 92 mm[Hg] Page Barnes Other [facility] Other 02-14-2022 17:15-0500 SaO2% (BldA) [Mass fraction] 98 % Page Barnes Other [facility] Other 02-14-2022 17:15-0500 Systolic blood pressure 146 mm[Hg] Page Barnes Other [facility] Other 08-12-2021 12:22-0400 Blood Pressure Location [facility] 08-12-2021 12:22-0400 Body temperature 98.42 [degF] [facility] 08-12-2021 12:22-0400 Diastolic blood pressure 70 mm[Hg] [facility] 08-12-2021 12:22-0400 Heart rate 100 /min [facility] 08-12-2021 12:22-0400 SaO2% (BldA) [Mass fraction] 99 % [facility] 08-12-2021 12:22-0400 Systolic blood pressure 118 mm[Hg] [facility] Encounters Encounter Date Encounter Type Care Provider Facility Start: 01-19-2024 End: 01-19-2024 Departed Referred CARPET BINDER Page Barnes Work Phone: [facility] [place] Work Phone: Start: 01-19-2024 End: 01-19-2024 ambulatory Page Barnes [facility] Work Phone: Start: 01-19-2024 End: 01-19-2024 Patient encounter procedure [facility] Work Phone: Start: 10-19-2023 End: 10-19-2023 ambulatory MD Christian Coelho Work Phone: [facility] Work Phone: Start: 10-19-2023 End: 10-19-2023 Encounter for general adult medical examination without abnormal findings MD Christian Coelho Work Phone: [facility] Start: 10-19-2023 End: 10-19-2023 Patient encounter procedure MD Christian Coelho Work Phone: [facility] Phone: Start: 10-19-2023 Physical examination MD Christian lopes Work Phone: [facility] Start: 09-24-2023 End: 09-24-2023 Departed Referred MD Christian Coelho Work Phone: [facility] Start: 09-24-2023 End: 09-24-2023 ambulatory MD Christian Coelho Work Phone: [facility] Work Phone: Start: 08-19-2023 Registered Recurring MD Christian lopes Work Phone: [facility] Work Phone: Start: 08-19-2023 ambulatory Christian Coelho Facility:[facility] Start: 08-19-2023 End: 08-19-2023 Patient encounter procedure MD Christian Coelho Work Phone: [facility] Work Phone: Start: 02-18-2023 End: 02-18-2023 ambulatory FLORENTINO VILLARREALZIO Not Available Start: 01-13-2023 End: 01-13-2023 ambulatory MD Christian oCelho Work Phone: [facility] Work Phone: Start: 01-13-2023 End: 01-13-2023 Patient encounter procedure MD Christian Coelho Work Phone: [facility] Start: 07-17-2022 End: 07-17-2022 ambulatory Taniya Krueger Other [facility] Other Start: 07-17-2022 Encounter for genera l adult medical examination without abnormal findings Taniya Krueger [facility] [place] Start: 07-17-2022 Initial preventive medicine new pt age 18-39yrs Taniya Krueger [facility] [place] Start: 05-27-2022 End: 05-27-2022 ambulatory MD Christian Coelho Work Phone: [facility] Work Phone: Start: 05-27-2022 End: 05-27-2022 Departed Referred MD Christian Coelho Work Phone: [facility] [address] Work Phone: Start: 02-14-2022 End: 02-14-2022 ambulatory Page Barnes Other [facility] Other Start: 02-14-2022 Office outpatient ne w 30 minutes Page Barnes [facility] Start: 01-09-2022 End: 04-10-2022 ambulatory Torres Dennis Facility:[facility] Start: 08-12-2021 End: 08-13-2021 ambulatory Geno Eugene Facility:[facility] Start: 08-12-2021 End: 08-12-2021 Patient encounter procedure Geno Eugene [facility] Start: 11-13-2016 Ambulatory Edgar Mauricio ity:RBC Procedures Date Procedure Procedure Detail Performing Clinician History of Dental Surgery Am y DiMarino DO Plan of Treatment Date Care Activity Detail Author Start: 01-19-2024 Urine culture [facility] Start: 01-19-2024 Bacteria identified in Urine by Culture Urine Culture [facility] Start: 05-27-2022 [facility] Immunizations Immunization Date Immunization Notes Care Provider Fa cility 01-23-2022 influenza, injectabl e, quadrivalent, preservative free Taniya Krueger Other [facility] 01-16-2021 influenza virus vaccine, unspecified formulation; Translations: [Fluzone PF Quadrivalent ] Geno Eugene [facility] Comment on above: Reason for Medicatio n: Prophylaxis Payers Date Payer Category Payer Self-pay [id number] 2021 Unknown [id number]. [id number] 1999 Unknown [id number] 1999 Unknown [id number] 2.16.8 [id number] 1999 Unknown [id number] Unknown [id number] Unknown MMO [id number] Unknown [id number] 2.16.8 [id number] Unknown [id number] 2.16.8 [id number] Unknown [id number] [id number] [id number] Social History Date Type Detail Facility Start: 08-12-2021 Tobacco smoking status Never smoked tobacco (finding) [facility] Tobacco smoking status Never [facility] Sex Assigned At Female [facility] Start: 2000 Sex Assigned At Female [facility] NEGATED: Highlighted row - - [facility] [address] Work Phone: Functional Status Date Assessment Result Facility NEGATED: Highlighted row Functional performance Functional status health issues are not documented Disease [facility] [address] Work Phone: Mental Status Date Assessment Result Facility NEGATED: Highlighted row Cognitive function [Interpretation] Cognitive status health issues are not documented Disease [facility]-Ybpibbvsqa-Zfb[facility]z [facility] [address] Work Phone: Evaluation note 07-17-2022 Note Date & Type Note Facility 07-17-2022 Evaluation note Encounter Date Diagnosis Assessment Notes Jul, Well adult exam (ICD-10 - Z00.00) Recent pillar labs reviewed with her. She will call and establish with S[facility]. Follow routinely with eye doctor and dentist. Patient is advised to work on healthy diet choices and appropriate servings, weight control, regular exercise as directed, reduced fat intake, and salt avoidance. Patient voiced understanding of this and agrees to this plan. Jul, control counseling (ICD-10 - Z30.09) She does not smoke and does not have migraines. Our office will refill her control until she sees [facility]. Refill sent today. [facility] Other Evaluation note 02-14-2022 Note Date & Type Note Facility 02-14-2022 Evaluation note Encounter Date Diagnosis Assessment Notes Feb, Sore throat (ICD-10 - J02.9) Feb, Strep pharyngitis (ICD-10 - J02.0) Advised patient that strep test was positive. Instructed to take antibiotic as directed, complete entire course even if feeling better. Allergies and recent antibiotics reviewed. Advised that patient is contagious for 24 hours after starting antibiotic, work/school note provided. Discussed good hand hygiene and infection control. New tooth brush and wash linens after 2-3 days of being on antibiotic to prevent reinfection. Discussed supportive care, push fluids and rest, eat soft foods and liquids that are easy to swallow, use throat lozenges and warm salt water gargles, Tylenol/Motrin as needed for fever or discomfort. Symptoms should improve in the next 48 hours, eval by PCP or UC if symptoms have not improved with treatment. Immediate eval if difficultly managing oral secretions, drooling, unilateral neck swelling, hot potato voice, persistent fever, neck pain/stiffness, severe headache, lethargy or any new or concerning symptoms arise. Patient verbalizes understanding and is agreeable to treatment plan [facility] Other Hospital Discharge instructions 08-12-2021 Note Date & Type Note Facility 08-12-2021 Hospital Discharg e instructions Patient Education 08/12/2021 12:54:59 Sinusitis, Adult Sinusitis, Adult Sinusitis is inflammation of your sinuses. Sinuses are hollow spaces in the bones around your face. Your sinuses are located: Around your eyes. In the middle of your forehead. Behind your nose. In your cheekbones. Mucus normally drains out of your sinuses. When your nasal tissues become inflamed or swollen, mucus can become trapped or blocked. This allows bacteria, viruses, and fungi to grow, which leads to infection. Most infections of the sinuses are caused by a virus. Sinusitis can develop quickly. It can last for up to 4 weeks (acute) or for more than 12 weeks (chronic). Sinusitis often develops after a cold. What are the causes? This condition is caused by anything that creates swelling in the sinuses or stops mucus from draining. This includes: Allergies. Asthma. Infection from bacteria or viruses. Deformities or blockages in your nose or sinuses. Abnormal growths in the nose (nasal polyps). Pollutants, such as chemicals or irritants in the air. Infection from fungi (rare). What increases the risk? You are more likely to develop this condition if you: Have a weak body defense system (immune system). Do a lot of swimming or diving. Overuse nasal sprays. Smoke. What are the signs or symptoms? The main symptoms of this condition are pain and a feeling of pressure around the affected sinuses. Other symptoms include: Stuffy nose or congestion. Thick drainage from your nose. Swelling and warmth over the affected sinuses. Headache. Upper toothache. A cough that may get worse at night. Extra mucus that collects in the throat or the back of the nose (postnasal drip). Decreased sense of smell and taste. Fatigue. A fever. Sore throat. Bad breath. How is this diagnosed? This condition is diagnosed based on: Your symptoms. Your medical history. A physical exam. Tests to find out if your condition is acute or chronic. This may include: ?Checking your nose for nasal polyps. ?Viewing your sinuses using a device that has a light (endoscope). ?Testing for allergies or bacteria. ?Imaging tests, such as an MRI or CT scan. In rare cases, a bone biopsy may be done to rule out more serious types of fungal sinus disease. How is this treated? Treatment for sinusitis depends on the cause and whether your condition is chronic or acute. If caused by a virus, your symptoms should go away on their own within 10 days. You may be given medicines to relieve symptoms. They include: ?Medicines that shrink swollen nasal passages (topical intranasal decongestants). ?Medicines that treat allergies (antihistamines). ?A spray that eases inflammation of the nostrils (topical intranasal corticosteroids). ?Rinses that help get rid of thick mucus in your nose (nasal saline washes). If caused by bacteria, your health care provider may recommend waiting to see if your symptoms improve. Most bacterial infections will get better without antibiotic medicine. You may be given antibiotics if you have: ?A severe infection. ?A weak immune system. If caused by narrow nasal passages or nasal polyps, you may need to have surgery. Follow these instructions at home: Medicines Take, use, or apply vkjw-lvw-tmhixzm and prescription medicines only as told by your health care provider. These may include nasal sprays. If you were prescribed an antibiotic medicine, take it as told by your health care provider. Do not stop taking the antibiotic even if you start to feel better. Hydrate and humidify Drink enough fluid to keep your urine pale yellow. Staying hydrated will help to thin your mucus. Use a cool mist humidifier to keep the humidity level in your home above 50%. Inhale steam for 10 15 minutes, 3 4 times a day, or as told by your health care provider. You can do this in the bathroom while a hot shower is running. Limit your exposure to cool or dry air. Rest Rest as much as possible. Sleep with your head raised (elevated). Make sure you get enough sleep each night. General instructions Apply a warm, moist washcloth to your face 3 4 times a day or as told by your health care provider. This will help with discomfort. Wash your hands often with soap and water to reduce your exposure to germs. If soap and water are not available, use hand cloth worker. Do not smoke. Avoid being around people who are smoking (secondhand smoke). Keep all follow-up visits as told by your health care provider. This is important. Contact a health care provider if: You have a fever. Your symptoms get worse. Your symptoms do not improve within 10 days. Get help right away if: You have a severe headache. You have persistent vomiting. You have severe pain or swelling around your face or eyes. You have vision problems. You develop confusion. Your neck is stiff. You have trouble breathing. Summary Sinusitis is soreness and inflammation of your sinuses. Sinuses are hollow spaces in the bones around your face. This condition is caused by nasal tissues that become inflamed or swollen. The swelling traps or blocks the flow of mucus. This allows bacteria, viruses, and fungi to grow, which leads to infection. If you were prescribed an antibiotic medicine, take it as told by your health care provider. Do not stop taking the antibiotic even if you start to feel better. Keep all follow-up visits as told by your health care provider. This is important. This information is not intended to replace advice given to you by your health care provider. Make sure you discuss any questions you have with your health care provider. Document Released: 03/23/2006 Document Revised: 08/23/2018 Document Reviewed: 08/23/2018 [employer] Patient Education 2020 [employer]. 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 acute [facility] Work Phone: Evaluation note Note Date & Type Note Facility Evaluation note Diagnosis Onset Date Acute cystitis with hematuria noneactive [facility] Work Phone: History general Narrative - Reported Note Date & Type Note Facility History general Narrative - Reported Type Medical History childhood asthma [facility] Other Instructions Note Date & Type Note Facility Instructions Name Instructions not documented [id number] Work Phone: Summary Purpose Family History No Family History Records Found Mother Name Dates Details Family history of asthma(V17 .5, Z82.5) Status:Active Family history of allergic r hinitis(V19.6, Z83.6) Status:Active Brother Name Dates Details Family history of allergic r hinitis(V19.6, Z83.6) Status:Active Relationship Condition Age at Onset Recorded Date/T kate father Hypertension Unknown grandparent History of stroke Unknown Not Specified Malignant neoplasm Unknown Relationship Condition Age at Onset Recorded Date/T kate father Hypertension Unknown grandparent History of stroke Unknown mother Malignant neoplasm Unknown Advance Directives No Advanced Directives Records Found Advance Directive Response Recorded Date/ Time Advance Directives No May 8:33am Advance Directive Response Recorded Date/ Time Advance Directives No May 9:33am Advance Directive Response Recorded Date/ Time Advance Directives No February 3:17pm Chief Complaint and Reason for Visit Chief Complaint New Employee Screeni ng Chief Complaint Flu Vaccine Chief Complaint New - Family Hx of C ancer Family Hx of Cancer Pillars Chief Complaint New - Family Hx of C ancer Family Hx of Cancer Pillars Pillar Reason for 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 Chief Complaint poss UTI Reason for Visit Acute cystitis with hematuria Chief Complaint poss UTI Dysuria Reason for Visit Acute cystitis with hematuria Additional Source Comments INFORMATION SOURCE (unrecogn ized section and content) DATE CREATED AUTHOR 09/30/2017 [facility] DATE CREATED AUTHOR AUTHOR'S ORGANIZ ATION 05/29/2022 [facility] DATE CREATED AUTHOR AUTHOR'S ORGANIZ ATION 02/20/2023 [facility] EPIC DATE CREATED AUTHOR AUTHOR'S ORGANIZ ATION 01/26/2024 [facility] REASON FOR VISIT (unrecogniz ed section and content) SORE THROAT, CONGESTION, EAR PAINEST CARE PILLARS, pillars lab work please Care Teams (unrecognized sec tion and content) Team Status: Active Member Role Status Dates Christian Coelho MD Primary Care Provider Active Team Status: Inactive Member Role Status Dates Christian Coelho MD Primary Care Provider Active Spenser Calabrese DO [facility] Attending Provider Active Team Status: Inactive Member Role Status Dates Christian Coelho MD Primary Care Provider Active St art: August 19, 2023 End: August 19, 2023 Laurie Swift Active Start: August 19, 2023 End: August 19, 2023 Maribell James MD Attending Provider Active Star t: August 19, 2023 End: August 19, 2023 Team Status: Active Member Role Status Dates Christian Coelho MD Primary Care Provider Active St art: August 19, 2023 Maribell James MD Attending Provider Active Star t: August 19, 2023 Team Status: Inactive Member Role Status Dates Christian Coelho MD Primary Care Provider Active St art: September 24, 2023 End: September 24, 2023 Spenser Calabrese - [facility] , DO [facility] Attending Provider Active Start: September 24, 2023 End: September 24, 2023 Team Status: Active Member Role Status Dates Taniya Krueger DNP Primary Care Provider Active Team Status: Inactive Member Role Status Dates Taniya Krueger DNP Primary Care Provid er, Attending Provider Active Start: October 19, 2023 End: October 19, 2023 Team Status: Inactive Member Role Status Dates Taniya Krueger DNP Primary Care Provider Active Start: January 19, 2024 End: January 19, 2024 Page Barnes APRN Attending Provider Active Start: January 19, 2024 End: January 19, 2024 Team Status: Inactive Member Role Status Dates Page Barnes APRN Attending Provider Active Start: January 19, 2024 End: January 19, 2024 Goals (unrecognized section and content) Goals may be documented in a n alternate section FOR RECORDS PERTAINING TO PATIENTS WHO ARE OR HAVE BEEN ENROLLED IN A CHEMICAL DEPENDENCY/SUBSTANCEABUSE PROGRAM, SOME INFORMATION MAY BE OMITTED. This clinical summary was aggregated from multiple sources. Caution should be exercised in using it in the provision of clinical care. This summary normalizes information from multiple sources, and as a consequence, information in this document may materially change the coding, format and clinical context of patient data. In addition, data may be omitted in some cases. CLINICAL DECISIONS SHOULD BE BASED ON THE PRIMARY CLINICAL RECORDS. [employer] provides no warranty or guarantee of the accuracy or completeness of information in this document.
== END 2024-03-16 19:13 | disposition home or self-care (01) ==
LOC: LAB 19:12
PROVIDERS: Visit Provider Obstetrics & Gynecology
DX: Z01.419 Encounter for gynecological examination (general) (routine) without abnormal findings (principal)
CPT/HCPCS: 88175